=== PATIENT | male | born 2000 | race Two or more races ===

== ENCOUNTER 2022-02-07 00:19 | Emergency (ER) | payer SELFPAY ==
[~2022-02-07] VITALS: Ht 177.8 cm; Wt 90.7 kg
[2022-02-07 00:32] VITALS: BP 154/78
== END 2022-02-07 01:27 | disposition left against medical advice (07) ==
LOC: ER 00:19 → EDBD 00:19 → ER 01:27
DX: F41.9 Anxiety disorder, unspecified (principal); Z53.21 Procedure and treatment not carried out due to patient leaving prior to being seen by health care provider